=== PATIENT | male | born 1965 | race Caucasian/White ===

== ENCOUNTER → 2017-01-22 | Outpatient (CLI) | payer OTHER ==
[2014-03-25 14:30] VITALS: BP 112/56
[~2017-01-22] MED LIST: HTN MED PO
--- NOTE | 2017-01-22 08:18 | RAD ---
Right great toe, 3 views, 01/22/2017: History: Toe injury There is a comminuted fracture of the proximal phalanx of the great toe. A fracture line involves the articular surface at the IP joint level. There is no significant displacement of the major fracture fragments. IMPRESSION: Comminuted fracture of the proximal phalanx of the great toe with intra-articular extension.
== END | disposition home or self-care (01) ==
LOC: DXRADRC 07:42
PROVIDERS: ATTEND Physician Assistant Medical
DX: S90.129A Contusion of unspecified lesser toe(s) without damage to nail, initial encounter (principal); S92.491A Other fracture of right great toe, initial encounter for closed fracture; W23.0XXA Caught, crushed, jammed, or pinched between moving objects, initial encounter; Y93.89 Activity, other specified; Y92.89 Other specified places as the place of occurrence of the external cause; Y99.8 Other external cause status
CPT/HCPCS: 73660